=== PATIENT | female | born 1945 | race Caucasian/White ===

== ENCOUNTER 2017-11-04 19:52 | Inpatient (IN) | payer OTHER ==
[~2017-11-04] VITALS: Ht 160 cm; Wt 60.1 kg
[2017-11-04 21:20] LABS: BASOPHIL % 0.6 % (0-2); PLATELET COUNT 285 x10^3mcL (130-400)
[2017-11-04 21:22] LABS: RED CELL DISTRIBUTION WIDTH 19.2 % (11.5-14.5)
[2017-11-04 21:29] LABS: CALCIUM 8.3 mg/dL (8.5-10.1); CARBON DIOXIDE 23.5 mmol/L (21-32); CHLORIDE SERUM 99 mmol/L (98-107); CREATININE SERUM 0.7 mg/dL (0.6-1.0); GLUCOSE SERUM 123 mg/dL (74-106); POTASSIUM SERUM 3.5 mmol/L (3.5-5.1); SODIUM SERUM 132 mmol/L (136-145)
[2017-11-04 21:37] LABS: ALKALINE PHOSPHATASE 74 U/L (46-116); ALT/SGPT 21 U/L (14-59); AST/SGOT 16 U/L (15-37); BILIRUBIN TOTAL 0.53 mg/dL (0.20-1.00); TOTAL PROTEIN, SERUM 6.4 g/dL (6.4-8.2)
[2017-11-04 21:44] LABS: ALBUMIN 2.6 g/dL (3.4-5.0)
[2017-11-04 22:28] LABS: UA SPECIFIC GRAVITY 1.015 (1.005-1.035); microscopic required? YES; urine erythrocyte 2+ (NEGATIVE)
[2017-11-04] MEDS ORDERED: NATURE'S BLEND F1 MG PO (23:38)
[2017-11-04] MEDS ORDERED: VITAMIN B121000 MCG PO (23:38)
[2017-11-04] MEDS ORDERED: ALBUTEROL1.25 MG/3 NEB (23:39)
[2017-11-04] MEDS ORDERED: PANTOPRAZOLE SO20 M1 PO (23:39)
[2017-11-04] MEDS ORDERED: PROAIR HFA8.5 GM IH (23:39)
[2017-11-05] VITALS (7 sets, daily range): BP systolic 104–142; BP diastolic 40–62
[2017-11-05] MEDS ORDERED: ZESTRIL5 MG PO (00:54)
[2017-11-05 02:01] LABS: CHOLESTEROL/HDL RATIO 2.7; MAGNESIUM 1.7 mg/dL (1.8-2.4); PHOSPHOROUS 2.5 mg/dL (2.5-4.9)
[2017-11-05 02:04] LABS: FREE T4 1.38 ng/dL (0.76-1.46); FREE THYROXINE INDEX 2.2 ug/dL (1.4-4.5); T4(THYROXINE) 6.2 ug/dL (4.7-13.3)
[2017-11-05 03:19] LABS: T3 TOTAL 0.88 ng/mL
[2017-11-05 06:18] LABS: BASOPHIL % 0.6 % (0-2); PLATELET COUNT 237 x10^3mcL (130-400)
[2017-11-05 06:41] LABS: CALCIUM 8.1 mg/dL (8.5-10.1); CARBON DIOXIDE 23.9 mmol/L (21-32); CHLORIDE SERUM 106 mmol/L (98-107); CREATININE SERUM 0.7 mg/dL (0.6-1.0); GLUCOSE SERUM 113 mg/dL (74-106); MAGNESIUM 1.9 mg/dL (1.8-2.4); PHOSPHOROUS 3.2 mg/dL (2.5-4.9); POTASSIUM SERUM 3.5 mmol/L (3.5-5.1); SODIUM SERUM 140 mmol/L (136-145)
[2017-11-05 07:01] LABS: RED CELL DISTRIBUTION WIDTH 19.1 % (11.5-14.5)
[2017-11-06 05:39] VITALS: BP 167/65
[2017-11-06 07:56] VITALS: BP 136/50
[2017-11-06 08:50] VITALS: Ht 160 cm; Wt 60.1 kg
[2017-11-06 12:06] LABS: BASOPHIL % 0.3 % (0-2); PLATELET COUNT 224 x10^3mcL (130-400)
[2017-11-06 12:12] LABS: RED CELL DISTRIBUTION WIDTH 19.4 % (11.5-14.5)
[2017-11-06 12:15] LABS: POTASSIUM SERUM 3.2 mmol/L (3.5-5.1); SODIUM SERUM 139 mmol/L (136-145)
[2017-11-06 12:16] LABS: CALCIUM 7.9 mg/dL (8.5-10.1); CARBON DIOXIDE 22.7 mmol/L (21-32); CHLORIDE SERUM 105 mmol/L (98-107); CREATININE SERUM 0.7 mg/dL (0.6-1.0); GLUCOSE SERUM 129 mg/dL (74-106)
[2017-11-06 12:31] VITALS: BP 148/66
[2017-11-06 17:03] VITALS: BP 141/79
[2017-11-06 20:52] VITALS: BP 147/60
[2017-11-07 05:40] VITALS: BP 139/53
[2017-11-07 07:07] LABS: BASOPHIL % 0.4 % (0-2); PLATELET COUNT 214 x10^3mcL (130-400)
[2017-11-07 07:12] LABS: RED CELL DISTRIBUTION WIDTH 18.9 % (11.5-14.5)
[2017-11-07 07:33] LABS: CALCIUM 8.1 mg/dL (8.5-10.1); CARBON DIOXIDE 21.2 mmol/L (21-32); CHLORIDE SERUM 109 mmol/L (98-107); CREATININE SERUM 0.6 mg/dL (0.6-1.0); GLUCOSE SERUM 103 mg/dL (74-106); POTASSIUM SERUM 4.2 mmol/L (3.5-5.1); SODIUM SERUM 142 mmol/L (136-145)
[2017-11-07 10:05] VITALS: BP 108/70
[2017-11-07 13:54] VITALS: BP 125/70
[2017-11-07] MEDS ORDERED: BACTRIM DS1 TAB PO (14:44)
[2017-11-07] MEDS ORDERED: LAC PO (14:45)
[2017-11-07 15:15] VITALS: BP 125/70
== END 2017-11-07 15:54 | disposition home or self-care (01) | DRG 871 ==
LOC: ED 19:52 → DU 23:39
PROVIDERS: Emergency Medicine; Family Medicine; Student in an Organized Health Care Education/Training Program
DX: A41.9 Sepsis, unspecified organism (principal); E43 Unspecified severe protein-calorie malnutrition; N39.0 Urinary tract infection, site not specified; E87.1 Hypo-osmolality and hyponatremia; Z68.44 Body mass index [BMI] 60.0-69.9, adult; J44.9 Chronic obstructive pulmonary disease, unspecified; I10 Essential (primary) hypertension; D64.9 Anemia, unspecified; K21.9 Gastro-esophageal reflux disease without esophagitis; I48.91 Unspecified atrial fibrillation; E83.42 Hypomagnesemia; E83.51 Hypocalcemia; Z53.29 Procedure and treatment not carried out because of patient's decision for other reasons; Z88.8 Allergy status to other drugs, medicaments and biological substances; Z72.89 Other problems related to lifestyle; Z79.899 Other long term (current) drug therapy
CPT/HCPCS: 83880; 84439; 87804; 94150; J0696; J1885; J7030; J7620